=== PATIENT | male | born 1995 | race Caucasian/White ===

== ENCOUNTER 2022-06-17 09:40 | Emergency (ER) | payer OTHER, SELFPAY ==
--- NOTE | 2022-06-17 09:47 | ED.BACK ---
HPI - Back Pain/Injury General Chief Complaint: Back Pain/Injury Stated Complaint: LOW BACK PAIN Time Seen by Provider: 06/17/22 09:47 Source: patient, family and RN notes reviewed Mode of arrival: ambulatory Limitations: no limitations History of Present Illness HPI Narrative: 27-year-old male presents to the [facility] with lower back pain worse on the left than the right. Patient states that he has had back pain intermittently since high school. States yesterday he was doing a lot a heavy lifting and carrying a lot of heavy equipment at work, last night started with increased lower back pain. No loss or retention of bowel or bladder. Has a shooting pain down the left leg last night. Has taken ibuprofen and attempted heat and ice. Denies any abdominal pain/ chest pain. Denies seeking care in the past. Has not seen a provider for pain in the past No saddle anesthesia. Denies any head trauma recently or in the past to the back. MD elicited complaint: back pain Similar Symptoms Previously: Yes Context: while lifting and turning/twisting Associated symptoms: denies other symptoms Treatments prior to arrival: heat therapy and NSAIDS Related Data Allergies Allergy/AdvReac Type Severity Reaction Status Date / Time No Known Allergies Allergy Verified 06/17/22 09:41 Review of Systems Review of Systems: All systems reviewed & are unremarkable except as noted in HPI and below Constitutional: Constitutional: Reports no additional constitutional complaints and Denies weakness Eyes: Eyes: Reports no additional eye complaints ENT: Reports system reviewed and no additional complaints, except as documented Cardiovascular: Cardiovascular: Reports no additional cardiovascular complaints and Denies chest pain Respiratory: Respiratory: Reports no additional respiratory complaints Gastrointestinal: Gastrointestinal: Reports no additional gastrointestinal complaints and Denies abdominal pain Musculoskeletal: Musculoskeletal: Reports as per HPI, Reports back pain (Lumbar), Denies myalgias, Denies arthralgias, Denies joint swelling and Denies numbness Integumentary/Breasts: Skin/Breast: Reports system reviewed and no additional complaints, except as docu Neurologic: Reports system reviewed and no additional complaints, except as documented, Denies focal weakness, Denies numbness and Denies weakness Psychiatric: Psychiatric: Reports no additional psychiatric complaints Allergic/Immunologic: Allergic/Immunologic: Reports no additional allergic/immunologic complaints PMFSH Past Medical History Medical History (Updated 06/17/22 @ 10:09 by Malika Steiner APRN) Patient denies medical problems Surgical History Surgical History (Updated 06/17/22 @ 10:02 by Malika Steiner APRN) No pertinent past surgical history Social History Social History (Updated 06/17/22 @ 10:02 by Malika Steiner APRN) Smoking status: Current every day smoker Tobacco type: e-cigarettes/vaping Gender identity (if verbalized by the patient): Male Comments At the time of my signature, I reviewed and agree with the nursing past medical, surgical, social, and family history. There is no relevant family history pertinent to the patient complaint. Exam Const: General: healthy appearing, no acute distress, alert and well nourished Nutritional Appearance: well nourished Orientation/consciousness: patient oriented x3 Limitations: no limitations HENMT: Head: normal to inspection Ears: external ears normal Eyes: Pupils: Equal, round and reactive pupils present Neck: Neck: normal visual inspection, no lymphadenopathy and no meningeal signs Chest: Chest palpation & inspection: normal inspection of the chest Resp: Effort & Inspection: normal respiratory effort and no use of accessory muscles Auscultation: clear to auscultation bilaterally, no crackles, no rales, no rhonchi and no wheezes Cardio: Rate: regular rate Rhythm: regular rhythm : Gene
[2022-06-17 09:51] VITALS: BP 144/94; PULSE 80; RESP 14; TEMP 37.1; O2SAT 100
== END 2022-06-17 10:06 | disposition home or self-care (01) ==
PROVIDERS: Emergency Provider Nurse Practitioner
DX: S39.012A Strain of muscle, fascia and tendon of lower back, initial encounter (principal); X50.0XXA Overexertion from strenuous movement or load, initial encounter; Y99.0 Civilian activity done for income or pay; F17.290 Nicotine dependence, other tobacco product, uncomplicated; Z86.16 Personal history of COVID-19
CPT/HCPCS: 99213; G0463

== ENCOUNTER 2023-02-19 10:17 | Emergency (ER) | payer OTHER, SELFPAY ==
[2023-02-19] MEDS: TETANUS,DIPHTHERIA,AC PERTUSSIS ADULT (0.5 ML) BOOSTRIX IM (10:48)
--- NOTE | 2023-02-19 11:57 | ED.GENADULT ---
HPI - General Adult General Chief complaint: Extremity Injury, Upper Stated complaint: saw to the leg Time Seen by Provider: 02/19/23 10:23 History of Present Illness HPI narrative: Patient is a 27-year-old male who presents ER with leg laceration. He was using a circular saw when it kicked and struck him in the left thigh. Unknown last tetanus. Bleeding controlled. No numbness or tingling to the leg. No additional concerns or injuries. Related Data Allergies Allergy/AdvReac Type Severity Reaction Status Date / Time No Known Allergies Allergy Verified 02/19/23 10:41 Review of Systems Musculoskeletal: Musculoskeletal: Denies arthralgias and Denies joint swelling Integumentary/Breasts: Skin/Breast: Denies erythema and Denies rash Comments: Left thigh laceration Neurologic: Denies focal weakness and Denies numbness PMFSH Past Medical History Medical History (Updated 02/19/23 @ 11:59 by Ashvin Vela MD) Patient denies medical problems Surgical History Surgical History (Updated 06/17/22 @ 10:02 by Malika Steiner APRN) No pertinent past surgical history Social History Social History (Updated 06/17/22 @ 10:02 by Malika Steiner APRN) Smoking status: Current every day smoker Tobacco type: e-cigarettes/vaping Gender identity (if verbalized by the patient): Male Exam Narrative: GENERAL: Well-appearing, well-nourished, and in no acute distress. HEAD: Normocephalic, atraumatic. ENT: Mucous membranes moist. EXTREMITIES: Normal range of motion. No edema. SKIN: Warm, dry, no rash. Left thigh with a 6 cm laceration that extends deep into the subcutaneous tissue. No foreign body visualized in a bloodless field. No muscle belly involvement. NEURO: Alert and oriented x3. PSYCH: Normal mood and affect. Course Course Emergency Course: Patient tolerated repair without issue. Received his tetanus update. Discharge home. Procedures Laceration Laceration 1: Date: 02/19/23 Time: 11:40 Site: lower extremity Side (If applicable): left Size (cm): 6 Description: linear Depth: simple, single layer (Deepened to subcutaneous tissue.) Local Anesthetic: lidocaine 2% and with epi Amount of anesthesia used (mL): 6 ====== Skin Level ====== Size (cm): other (Ethilon 3-0, with 3 horizontal mattresses and 1 single interrupted. Ethilon 4-0 with 3 single interrupted.) ====== Subcutaneous Layer ====== Subcutaneous layer closed with: vicryl Size: 4-0 Number of sutures: 2 Technique: simple, interrupted ====== Muscle Layer ====== ====== Tendon Layer ====== Discharge Plan Discharge Clinical Impression: Laceration of leg Patient Disposition: Home, Self-Care Condition: Stable Instructions: Care For Your Stitches (ED), Laceration (ED) Additional Instructions: Keep your sutures clean and dry. You will need to have your sutures removed in 14 days. Return the ER for the wound is red and hot, it is draining pus, or you have additional concerns. With sutures can be removed at the ER, your primary care doctor's office, or if you are comfortable, at home. Prescriptions: No Action baclofen 10 mg tablet 10 mg PO TID PRN (Reason: muscle pain) Qty: 10 0RF ibuprofen 600 mg tablet 600 mg PO TID PRN (Reason: fever or pain) Qty: 30 0RF Follow-up/Referrals: PHYSICIAN,[employer] [Primary Care Provider] - Nagi Feliz MD [Physician] - 2 Weeks
[2023-02-19 12:15] VITALS: BP 125/85; PULSE 74; RESP 18; O2SAT 100
== END 2023-02-19 12:22 | disposition home or self-care (01) ==
PROVIDERS: Emergency Provider Emergency Medicine
DX: S71.112A Laceration without foreign body, left thigh, initial encounter (principal); Z23 Encounter for immunization; F17.290 Nicotine dependence, other tobacco product, uncomplicated; W31.2XXA Contact with powered woodworking and forming machines, initial encounter
CPT/HCPCS: 12002; 12032; 90471; 90715; 99282